=== PATIENT | male | born 1945 | race Caucasian/White ===

== ENCOUNTER → 2019-05-01 09:35 | Outpatient (CLI) | payer MEDICARE, BC ==
[2016-02-23 06:42] VITALS: BMI 25.1
[~2019-05-01 09:35] MED LIST: AREDS; BAYER CHEWABLE81 MG PO; LIPITOR40 MG PO; LISINOPRIL5 MG PO; MULTIPLE VITAMI1 TA1 PO
== END | disposition home or self-care (01) ==
LOC: D.HCCECHO 09:35
PROVIDERS: ATTEND Internal Medicine Cardiovascular Disease
DX: I25.10 Atherosclerotic heart disease of native coronary artery without angina pectoris (principal)